=== PATIENT | female | born 1960 | race American Indian/Alaskan Native ===

== ENCOUNTER 2017-03-20 10:28 | Outpatient (CLI) | payer MEDICARE ==
--- NOTE | 2017-03-20 11:28 | XRay Report ---
BILATERAL HAND THREE VIEWS EACH: 03/20/17 CLINICAL: Bilateral hand pain. FINDINGS: Left:Mild osteopenia. No fracture or dislocation. Moderate osteoarthritis at the basal joint of the thumb and at the first MCP joint. Mild osteoarthritis at the second MCP joint. Minimal arthritis of digits 2-5. The carpal bones are intact. The distal radius and ulna are normal.Normal soft tissues. Right: Mild osteopenia. No fracture or dislocation. Moderate osteoarthritis at the basal joint of the thumb and mild osteoarthritis at the MCP joints 1-3.The carpal bones are intact. The distal radius and ulna are intact.Normal soft tissues. IMPRESSION: Bilateral osteoarthritis with greater involvement of the basal basal joint of the thumb on each side.
== END 2017-03-20 10:29 | disposition home or self-care (01) ==
LOC: SPVIMAG 10:28
PROVIDERS: ATTEND Orthopaedic Surgery Sports Medicine
DX: M19.042 Primary osteoarthritis, left hand (principal); M19.041 Primary osteoarthritis, right hand; M18.9 Osteoarthritis of first carpometacarpal joint, unspecified; M85.842 Other specified disorders of bone density and structure, left hand; M85.841 Other specified disorders of bone density and structure, right hand; I11.0 Hypertensive heart disease with heart failure; I50.9 Heart failure, unspecified; D64.9 Anemia, unspecified

== ENCOUNTER 2017-09-24 13:00 | Outpatient (CLI) | payer MEDICARE ==
[2017-09-24 13:33] LABS: Hematocrit 34.4 % (30.3-42.9); Hemoglobin 10.8 gm/dl (10.1-14.3); Mean Corpuscular HGB Conc 31 % (30-34); Mean Corpuscular Hemoglobin 29 pg (28-32); Mean Corpuscular Volume 91 fl (79-97); Platelet Count 185 K/mm3 (140-440); Red Blood Count 3.77 M/mm3 (3.65-5.03); Red Cell Distribution Width 16.1 % (13.2-15.2)
[2017-09-24 13:35] LABS: Bacteria,Urine 2+ /HPF (Negative); Bilirubin,Urine NEG (Negative); Blood,Urine MOD (Negative); Color,Urine Yellow (Yellow); Hyaline Casts,Urine 2 /LPF; Mucus,Urine FEW /HPF; Urobilinogen,Urine < 2.0 mg/dL (<2.0)
[2017-09-24 13:38] LABS: RBC,Urine > 182.0 /HPF (0.0-6.0)
[2017-09-24 13:42] LABS: Alanine Aminotransferase 14 units/L (7-56); Albumin 3.9 g/dL (3.9-5); BUN/Creatinine Ratio 19; Blood Urea Nitrogen 13 mg/dL (7-17); Calcium 9.1 mg/dL (8.4-10.2); Hemolysis Index 5
[2017-09-24 13:44] LABS: INR 2.35 (0.87-1.13)
== END 2017-09-24 13:01 | disposition home or self-care (01) ==
LOC: LAB 13:00
PROVIDERS: ATTEND Internal Medicine Cardiovascular Disease
DX: I11.0 Hypertensive heart disease with heart failure (principal); I50.9 Heart failure, unspecified; R82.90 Unspecified abnormal findings in urine; D64.9 Anemia, unspecified; M32.9 Systemic lupus erythematosus, unspecified; E78.5 Hyperlipidemia, unspecified; K21.9 Gastro-esophageal reflux disease without esophagitis; Z95.810 Presence of automatic (implantable) cardiac defibrillator; Z87.898 Personal history of other specified conditions; Z83.3 Family history of diabetes mellitus; Z82.49 Family history of ischemic heart disease and other diseases of the circulatory system; Z95.811 Presence of heart assist device; Z70.1 Counseling related to patient's sexual behavior and orientation
CPT/HCPCS: 36415; 80053; 81001; 83615; 83735; 85027; 85610; 87086

== ENCOUNTER 2018-05-29 17:47 | Emergency (ER) | payer MEDICARE ==
[2018-05-29] MEDS ORDERED: MORPHINE IV ONE (18:15)
--- NOTE | 2018-05-29 18:18 | Emergency Department Report ---
ED Chest Pain HPI - General Chief Complaint: Chest Pain Stated Complaint: CHEST PAIN Time Seen by Provider: 05/29/18 18:06 Source: patient, EMS Mode of arrival: Stretcher Limitations: No Limitations - History of Present Illness Initial Comments: Mrs. Day is 57 yo female with hx of severe systolic CHF with LVAD in place, lupus, dyslipidemia, GERD who presents with severe upper back pain radiating into the anterior chest. Pain began suddenly while seated. She was feeding her grandchild when this occurred. Chest pain felt at if someone stepping on her chest. 10/10 in severity initially. He was given aspirin per EMS. Pain is now 8 out of 10. She is followed by [facility]. She is on warfarin therapy. She did drink one beer today. LVAD team number [facility] Dr. Sade Bach MD Complaint: chest pain -: Sudden, This afternoon Onset: during rest Pain Location: substernal Pain Radiation: back Severity scale (0 -10): 10 Quality: heaviness Consistency: constant Worsens With: nothing - Related Data Home Medications Medication Instructions Recorded Confirmed Last Taken Folic Acid 20 mg PO QDAY 09/13/16 09/13/16 09/12/16 Polyethylene Glycol 3350 [Purelax] 17 gm PO DAILY 09/13/16 09/13/16 09/12/16 Thiamine [Vitamin B-1] 100 mg PO QDAY 09/13/16 09/13/16 09/12/16 Previous Rx's Medication Instructions Recorded Last Taken Type Aspirin EC [Aspirin Enteric Coated 81 mg PO QDAY #100 tablet 09/04/15 09/12/16 Rx TAB] Hydroxychloroquine [Plaquenil] 200 mg PO BID #60 tablet 09/04/15 09/12/16 Rx Metoprolol [Lopressor TAB] 12.5 mg PO BID #60 tablet 09/04/15 09/12/16 Rx Simvastatin [Zocor TAB] 40 mg PO QHS #30 tablet 09/04/15 09/12/16 Rx Bumetanide [Bumex 1 mg tab] 2 mg PO BID #60 tablet 09/18/16 Unknown Rx Potassium Chloride [K-Dur] 20 meq PO QDAY #30 tablet 09/18/16 Unknown Rx Allergies Allergy/AdvReac Type Severity Reaction Status Date / Time No Known Allergies Allergy Verified 01/21/15 10:41 Heart Score - HEART Score History: Moderately suspicious EKG: Non-specific Age: 45-65 Risk factors: 1-2 risk factors Troponin: < normal limit HEART Score: 4 ED Review of Systems ROS: Stated complaint: CHEST PAIN Other details as noted in HPI Comment: All other systems reviewed and negative Constitutional: denies: fever, malaise Respiratory: denies: cough Cardiovascular: chest pain ED Past Medical Hx - Past Medical History Previous Medical History?: Yes Hx Hypertension: Yes Hx Heart Attack/AMI: No (LVAT) Hx Congestive Heart Failure: Yes Hx Diabetes: No Hx Deep Vein Thrombosis: No Hx Pulmonary Embolism: No Hx Liver Disease: No Hx Renal Disease: No Hx Sickle Cell Disease: No Hx Arthritis: No Hx Seizures: No Hx Kidney Stones: No Hx Asthma: No Hx COPD: No Hx Tuberculosis: No Hx Dementia: No Hx HIV: No Additional medical history: lupus, etoh abuse, iron deficiency anemia. HIGH CHOLESTEROL - Surgical History Past Surgical History?: Yes Hx Coronary Stent: No Hx Open Heart Surgery: No Hx Pacemaker: No Hx Internal Defibrillator: Yes (fired 04/08/15) Hx Cholecystectomy: No Hx Appendectomy: No Hx Breast Surgery: No Additional Surgical History: X 4. Rectal fissure repair. - Social History Smoking Status: Never Smoker Substance Use Type: None - Medications Home Medications: Home Medications Medication Instructions Recorded Confirmed Last Taken Type Aspirin EC [Aspirin Enteric Coated 81 mg PO QDAY #100 tablet 09/04/15 09/13/16 09/12/16 Rx TAB] Hydroxychloroquine [Plaquenil] 200 mg PO BID #60 tablet 09/04/15 09/13/16 09/12/16 Rx Metoprolol [Lopressor TAB] 12.5 mg PO BID #60 tablet 09/04/15 09/13/16 09/12/16 Rx Simvastatin [Zocor TAB] 40 mg PO QHS #30 tablet 09/04/15 09/13/16 09/12/16 Rx Folic Acid 20 mg PO QDAY 09/13/16 09/13/16 09/12/16 History Polyethylene Glycol 3350 [Purelax] 17 gm PO DAILY 09/13/16 09/13/16 09/12/16 History Thiamine [Vitamin B-1] 100 mg PO QDAY 06/09/13/16 09/12/16 History Bumetanide [Bumex 1 mg tab] 2 mg PO BID #60 tablet 09/18/16 Unknown Rx Potassium Chloride [K-Dur] 20 meq PO QDAY #30 tablet 09/18/16 Unknown Rx ED Physical Exam - General Limitations: No Limitations General appearance: alert, in no apparent distress - Head Head exam: Present: atraumatic, normocephalic - Eye Eye exam: Present: normal appearance - ENT ENT exam: Present: mucous membranes moist - Neck Neck exam: Present: normal inspection. Absent: tenderness, meningismus - Respiratory Respiratory exam: Present: normal lung sounds bilaterally. Absent: respiratory distress, wheezes, rales, rhonchi - Cardiovascular Cardiovascular Exam: Present: regular rate, normal rhythm, normal heart sounds. Absent: systolic murmur, diastolic murmur, rubs, gallop - GI/Abdominal GI/Abdominal exam: Present: soft, normal bowel sounds, other (bandage with LVAD tubing present). Absent: distended, tenderness, guarding, rebound - Extremities Exam Extremities exam: Present: normal inspection - Back Exam Back exam: Present: normal inspection - Neurological Exam Neurological exam: Present: alert, oriented X3 - Psychiatric Psychiatric exam: Present: normal affect, normal mood - Skin Skin exam: Present: warm, dry, intact, normal color. Absent: rash ED Course Vital Signs 05/29/18 18:02 Temperature 98.1 F Pulse Rate 62 Respiratory 20 Rate Blood Pressure 107/77 Blood Pressure 107/77 [Right] O2 Sat by Pulse 100 Oximetry EDWIN score - Edwin Score Age > 65: (0) No Aspirin use within the Past 7 Days: (1) Yes 3 or more CAD Risk Factors: (1) Yes 2 or more Angina events in past 24 hrs: (0) No Known CAD with more than 50% Stenosis: (0) No Elevated Cardiac Markers: (0) No ST Deviation Greater than 0.5mm: (0) No EDWIN Score: 2 ED Medical Decision Making - Lab Data Result diagrams: 05/29/18 18:29 05/29/18 18:29 - EKG Data 05/29/18 19:26 EKG obtained 1832 NSR 60 bpm diffuse T wave inversions no ST elevation prolonged CO interval - Radiology Data Radiology results: report reviewed No acute process AP portable chest one view - Medical Decision Making Mrs. Shay 57-year-old female with advanced heart failure with LVAD in place. She presents for back pain radiating to the chest. I did not suspect ACS However, I spoke with Dr. Sammy Pugh (cell [phone]) [facility] LVAD/ heart failure specialist. He related to me that the patient has normal coronary artery anatomy. Dr. Pugh does not have concern for ACS. He suspects musculoskeletal pain related to LVAD. Dr. Pugh main concern is thrombosis. His instruction: Check LDH, if LDH is greater than 1.5 normal level for our lab then patient should be given Lovenox. Recent LDH value for Ms. Day per Dr. Pugh is 271. Anticipate discharge. My colleague will f/u LDH result Critical care attestation.: If time is entered above; I have spent that time in minutes in the direct care of this critically ill patient, excluding procedure time. ED Disposition Clinical Impression: Musculoskeletal back pain, Musculoskeletal chest pain, Heart failure, LVAD (left ventricular assist device) present Disposition: DC- TO HOME OR SELFCARE Is pt being admited?: No Does the pt Need Aspirin: No Condition: Stable Instructions: Chest Pain (ED)
[2018-05-29 18:54] LABS: Hematocrit 30.1 % (30.3-42.9); Hemoglobin 9.8 gm/dl (10.1-14.3); INR 1.8 (0.87-1.13); Lymphocytes % (Auto) 30.8 % (13.4-35.0); Mean Corpuscular HGB Conc 33 % (30-34); Mean Corpuscular Volume 90 fl (79-97); Monocytes % (Auto) 11.2 % (0.0-7.3); Platelet Count 193 K/mm3 (140-440); Red Blood Count 3.34 M/mm3 (3.65-5.03); Red Cell Distribution Width 15.4 % (13.2-15.2)
[2018-05-29 18:55] LABS: Basophils % (Auto) 0.8 % (0.0-1.8); Eosinophils # (Auto) 0.1 K/mm3 (0.0-0.4); Eosinophils % (Auto) 2.6 % (0.0-4.3); Lymphocytes # (Auto) 1.4 K/mm3 (1.2-5.4); Monocytes # (Auto) 0.5 K/mm3 (0.0-0.8)
[2018-05-29 19:01] LABS: Alanine Aminotransferase 9 units/L (7-56); Albumin 4.2 g/dL (3.9-5); BUN/Creatinine Ratio 21; Blood Urea Nitrogen 17 mg/dL (7-17); Calcium 8.7 mg/dL (8.4-10.2); Hemolysis Index 3
[2018-05-29] MEDS ORDERED: NORCO 5/325 PO ONE (19:48)
[2018-05-29 19:54] VITALS: BP 123/94
--- NOTE | 2018-05-30 09:03 | XRay Report ---
FINAL REPORT EXAM: XR CHEST 1V AP HISTORY: Chest Pain TECHNIQUE: Frontal portable view of the chest Comparison: CT angiogram chest dated August 17, 2015 FINDINGS: Visualization of a portion of the left lung base is limited by artifact created by an overlying medic al device. There is no definite evidence of focal infiltrate or pleural effusion and no evidence of pneumothorax . The cardiac silhouette is enlarged similar in appearance to the previous study. There is a single derick d AICD. There are bilateral hilar calcified lymph nodes as was demonstrated on the previous study. The thoracic aorta is mildly tortuous. The bony structures are unremarkable. IMPRESSION: 1. A portion the left lung base is not well visualized due to overlying ophthalmic medical technologist. 2. No plain film evidence of an acute pulmonary process. 3. Enlarged cardiac silhouette similar in appearance to the previous chest CT dated August 17, 2015. Sin gle lead AICD.
== END 2018-05-29 21:00 | disposition home or self-care (01) ==
LOC: ED 17:47
DX: I11.0 Hypertensive heart disease with heart failure (principal); Z95.811 Presence of heart assist device; M32.9 Systemic lupus erythematosus, unspecified; K21.9 Gastro-esophageal reflux disease without esophagitis; D50.9 Iron deficiency anemia, unspecified; E78.00 Pure hypercholesterolemia, unspecified; M79.10 Myalgia, unspecified site; Z79.82 Long term (current) use of aspirin
CPT/HCPCS: 36415; 71045; 80053; 83615; 84484; 85025; 85610; 93005; 93010; 96374; 99285; J2270

== ENCOUNTER 2019-12-10 10:30 | Outpatient (CLI) | payer MEDICARE ==
[2019-12-10 11:04] LABS: Basophils % (Auto) 0.9 % (0.0-1.8); Eosinophils # (Auto) 0.1 K/mm3 (0.0-0.4); Eosinophils % (Auto) 3.5 % (0.0-4.3); Hematocrit 37.5 % (30.3-42.9); Hemoglobin 12.1 gm/dl (10.1-14.3); Lymphocytes # (Auto) 1.2 K/mm3 (1.2-5.4); Lymphocytes % (Auto) 36.5 % (13.4-35.0); Mean Corpuscular HGB Conc 32 % (30-34); Mean Corpuscular Volume 91 fl (79-97); Monocytes # (Auto) 0.4 K/mm3 (0.0-0.8); Monocytes % (Auto) 12.9 % (0.0-7.3); Platelet Count 173 K/mm3 (140-440); Red Blood Count 4.13 M/mm3 (3.65-5.03); Red Cell Distribution Width 15.1 % (13.2-15.2)
[2019-12-10 11:13] LABS: INR 1.81 (0.87-1.13)
[2019-12-10 11:53] LABS: Alanine Aminotransferase 12 units/L (7-56); Albumin 4.7 g/dL (3.9-5); BUN/Creatinine Ratio 18; Blood Urea Nitrogen 14 mg/dL (7-17); Calcium 9.6 mg/dL (8.4-10.2); Hemolysis Index 1
== END 2019-12-10 10:31 | disposition home or self-care (01) ==
LOC: LAB 10:30
DX: I42.9 Cardiomyopathy, unspecified (principal)
CPT/HCPCS: 36415; 80053; 83615; 83735; 85025; 85610

== ENCOUNTER 2020-02-25 09:52 | Outpatient (CLI) | payer MEDICARE ==
[2020-02-25 11:09] LABS: Blood Urea Nitrogen 12 mg/dL (7-17)
--- NOTE | 2020-02-25 12:32 | Cat Scan Report ---
CT ABDOMEN WITHOUT AND WITH CONTRAST INDICATION / CLINICAL INFORMATION: MAIN. Diarrhea with pain in the area of the pancreas. TECHNIQUE: Axial CT images were obtained through the abdomen before and after IV contrast. All CT scans at this location are performed using CT dose reduction for ALARA by means of automated exposure control. COMPARISON: CT abdomen and pelvis dated 02/27/2015 FINDINGS: LOWER CHEST: Interval placement of implantable cardiac device along the left cardiac border demonstra ting infiltration into the left ventricle with associated vascular stent graft material along the ant erior mediastinum. Previously noted right ventricular cardiac lead is in stable position. Linear atel ectasis noted in the left lung base. LIVER: No significant abnormality. GALLBLADDER: No significant abnormality. BILE DUCTS: No significant abnormality. PANCREAS: No significant abnormality. Specifically no evidence of inflammatory changes or peripancrea tic fat stranding. No pancreatic ductal dilatation. SPLEEN: Calcified granuloma noted throughout the splenic parenchyma. ADRENALS: No significant abnormality. RIGHT KIDNEY / URETER: No significant abnormality. LEFT KIDNEY / URETER: No significant abnormality. STOMACH / SMALL BOWEL: Small hiatal hernia. COLON: Colonic diverticulosis without evidence of diverticulitis. APPENDIX: No significant abnormality. PERITONEUM: No free fluid. No free air. No fluid collection. LYMPH NODES: No significant adenopathy. AORTA / ARTERIES: Mild atherosclerotic calcification without acute abnormality. IVC / VEINS: No significant abnormality. ADDITIONAL FINDINGS: The uterus partially visualized in the lower abdomen (series 3 image [id number]). SKELETAL SYSTEM: Mild multilevel degenerative changes are noted of the spine. No aggressive osseous l esions. IMPRESSION: 1. No evidence of acute process in the visualized portion of the chest or abdomen. Specifically, no e vidence of significant abnormality to the pancreas. 2. Interval placement of implantable cardiac device, likely left ventricular assist device. Correlati on with surgical measures recommended. The previously noted right ventricular cardiac leads is in sta ble position. 3. Small hiatal hernia. 4. Colonic diverticulosis without evidence of diverticulitis. Signer Name: Sarkis Chandler MD Signed: 02/25/2020 12:28 PM Workstation Name: [id number]
== END 2020-02-25 09:53 | disposition home or self-care (01) ==
LOC: CT 09:52
PROVIDERS: ATTEND Internal Medicine Gastroenterology
DX: K44.9 Diaphragmatic hernia without obstruction or gangrene (principal); K57.30 Diverticulosis of large intestine without perforation or abscess without bleeding; R19.7 Diarrhea, unspecified
CPT/HCPCS: 36415; 74170; 82565; 84520; Q9967; 74160

== ENCOUNTER 2020-04-28 10:08 | Outpatient (CLI) | payer MEDICARE ==
[2020-04-28 11:17] LABS: Basophils % (Auto) 0.8 % (0.0-1.8); Eosinophils # (Auto) 0.1 K/mm3 (0.0-0.4); Eosinophils % (Auto) 2.4 % (0.0-4.3); Hematocrit 38.6 % (30.3-42.9); Hemoglobin 12.5 gm/dl (10.1-14.3); Lymphocytes # (Auto) 1.1 K/mm3 (1.2-5.4); Lymphocytes % (Auto) 37.1 % (13.4-35.0); Mean Corpuscular HGB Conc 33 % (30-34); Mean Corpuscular Volume 92 fl (79-97); Monocytes # (Auto) 0.4 K/mm3 (0.0-0.8); Monocytes % (Auto) 13.6 % (0.0-7.3); Platelet Count 164 K/mm3 (140-440); Red Blood Count 4.19 M/mm3 (3.65-5.03); Red Cell Distribution Width 14.2 % (13.2-15.2)
[2020-04-28 11:28] LABS: INR 1.99 (0.87-1.13)
[2020-04-28 12:06] LABS: Alanine Aminotransferase 15 units/L (7-56); Albumin 4.7 g/dL (3.9-5); BUN/Creatinine Ratio 14; Blood Urea Nitrogen 13 mg/dL (7-17); Calcium 9.4 mg/dL (8.4-10.2); Hemolysis Index 11
== END 2020-04-28 10:09 | disposition home or self-care (01) ==
LOC: LAB 10:08
PROVIDERS: ATTEND Internal Medicine
DX: I50.22 Chronic systolic (congestive) heart failure (principal); Z79.01 Long term (current) use of anticoagulants; Z98.811 Dental restoration status
CPT/HCPCS: 36415; 80053; 83615; 83735; 85025; 85610

== ENCOUNTER 2020-10-05 12:17 | Outpatient (CLI) | payer MEDICARE ==
[2020-10-05 13:09] LABS: Eosinophils # (Auto) 0.1 K/mm3 (0.0-0.4); Eosinophils % (Auto) 2.7 % (0.0-4.3); Hematocrit 34.2 % (30.3-42.9); Hemoglobin 11.2 gm/dl (10.1-14.3); Lymphocytes # (Auto) 1.2 K/mm3 (1.2-5.4); Lymphocytes % (Auto) 32.7 % (13.4-35.0); Mean Corpuscular HGB Conc 33 % (30-34); Mean Corpuscular Volume 92 fl (79-97); Monocytes # (Auto) 0.5 K/mm3 (0.0-0.8); Monocytes % (Auto) 12.9 % (0.0-7.3); Platelet Count 186 K/mm3 (140-440); Red Blood Count 3.73 M/mm3 (3.65-5.03); Red Cell Distribution Width 14.3 % (13.2-15.2)
[2020-10-05 13:20] LABS: Alanine Aminotransferase 11 units/L (7-56); Albumin 4.7 g/dL (3.9-5); Blood Urea Nitrogen 15 mg/dL (7-17); Calcium 9.7 mg/dL (8.4-10.2); Hemolysis Index 39
[2020-10-05 13:21] LABS: BUN/Creatinine Ratio 21
[2020-10-05 14:12] LABS: INR 2.04 (0.87-1.13)
== END 2020-10-05 12:18 | disposition home or self-care (01) ==
LOC: LAB 12:17
PROVIDERS: ATTEND Internal Medicine
DX: I50.22 Chronic systolic (congestive) heart failure (principal); Z95.811 Presence of heart assist device; Z79.01 Long term (current) use of anticoagulants
CPT/HCPCS: 36415; 80053; 83615; 83735; 85025; 85610

== ENCOUNTER 2021-04-04 11:41 | Outpatient (CLI) | payer MEDICARE ==
[2021-04-04 12:08] LABS: Basophils % (Auto) 0.6 % (0.0-1.8); Eosinophils # (Auto) 0.1 K/mm3 (0.0-0.4); Eosinophils % (Auto) 2.4 % (0.0-4.3); Hematocrit 34.9 % (30.3-42.9); Hemoglobin 10.9 gm/dl (10.1-14.3); Lymphocytes # (Auto) 1.2 K/mm3 (1.2-5.4); Lymphocytes % (Auto) 22.6 % (13.4-35.0); Mean Corpuscular HGB Conc 31 % (30-34); Mean Corpuscular Volume 91 fl (79-97); Monocytes # (Auto) 0.6 K/mm3 (0.0-0.8); Monocytes % (Auto) 10.7 % (0.0-7.3); Platelet Count 217 K/mm3 (140-440); Red Blood Count 3.82 M/mm3 (3.65-5.03)
[2021-04-04 12:18] LABS: INR 2.29 (0.87-1.13)
[2021-04-04 12:37] LABS: Alanine Aminotransferase 14 units/L (7-56); Albumin 4.7 g/dL (3.9-5); BUN/Creatinine Ratio 17; Blood Urea Nitrogen 17 mg/dL (7-17); Calcium 9.6 mg/dL (8.4-10.2); Hemolysis Index 4
== END 2021-04-04 11:42 | disposition home or self-care (01) ==
LOC: LAB 11:41
PROVIDERS: ATTEND Internal Medicine
DX: I50.22 Chronic systolic (congestive) heart failure (principal); Z95.811 Presence of heart assist device; Z79.01 Long term (current) use of anticoagulants
CPT/HCPCS: 36415; 80053; 83615; 83735; 85025; 85610